=== PATIENT | female | born 1950 | race Caucasian/White ===

== ENCOUNTER → 2016-09-14 | Outpatient (REF) | payer MEDICARE ==
[~2016-09-14] MED LIST: AMLO10TA5 PO; ATOR20TA PO; CYCL-265 PO; ESCI10TA49 PO; FLEC50TA3 PO; HYDR1TAB71 PO; IBP200T PO; ISM30TCR PO; OMEP40CA36 PO; ONDA4TAB8 PO
[2016-09-14 14:39] LABS: BASOPHILS % (AUTO) 1 % (0-2); EOSINOPHILS # (AUTO) 0.1 10^3uL; EOSINOPHILS % (AUTO) 2 % (0-4); LYMPHOCYTES # (AUTO) 2.3 X10^3; MEAN CORPUSCULAR HEMOGLOBIN 28.6 PG (26.0-34.0); MEAN CORPUSCULAR HGB CONC 32.9 g/dL (31.0-37.0); MEAN CORPUSCULAR VOLUME 87 FL (80-100); MEAN PLATELET VOLUME 10.5 FL (6.0-9.5); MONOCYTES # (AUTO) 0.6 X10^3; MONOCYTES % (AUTO) 11 % (3-11); NEUTROPHILS # (AUTO) 2.7 X10^3; NEUTROPHILS % (AUTO) 47 % (51-67); PLATELET COUNT 247 10^3uL (150-450); WHITE BLOOD COUNT 5.77 10^3uL (4.0-11.0)
[2016-09-14 14:54] LABS: ALBUMIN 4.1 g/dL (3.4-5.0); ANION GAP 13.6 MEQ/L (3-15); CALCULATED IONIZED CALCIUM 4.3 mg/dL (3.8-4.6); TOTAL PROTEIN 6.7 g/dL (6.4-8.5)
== END ==
LOC: LAB 14:12
PROVIDERS: ATTEND Nurse Practitioner Family
DX: R10.32 Left lower quadrant pain (principal)
CPT/HCPCS: 80053; 85025; 87088

== ENCOUNTER → 2016-09-18 | Outpatient (CLI) | payer MEDICARE ==
--- NOTE | 2016-09-18 10:55 | Diagnostic Imaging Report ---
PROCEDURE: CT abdomen and pelvis with and without contrast. TECHNIQUE: Precontrast acquisitions were acquired through the abdomen and pelvis. Multiple contiguous axial images were obtained through the abdomen and pelvis after the administration of intravenous contrast. INDICATION: Left lower quadrant pain and bloating. FINDINGS: There is left colonic and sigmoidal diverticuli but there were no findings suggestive of acute diverticulitis. The uterus, adnexa and urinary bladder had an unremarkable appearance. The appendix is visualized and normal. No mesenteric or retroperitoneal adenopathy. Liver, gallbladder, bile ducts, spleen, adrenals, and pancreas are all unremarkable. There are left greater than right renal parapelvic cysts. There is no hydronephrosis. There is no solid complex or suspicious renal mass. No lymphadenopathy. Nonaneurysmal aortic atherosclerosis, chronic. IMPRESSION: Noninflamed diverticulosis. Nonaneurysmal atherosclerosis. Renal parapelvic cysts without hydronephrosis. No acute appearing abdominopelvic abnormality. No focal inflammatory process. No adnexal pathology. Dictated by: Dictated on workstation # [id number]
== END ==
LOC: RAD 06:53
PROVIDERS: ATTEND Nurse Practitioner Family
DX: R10.32 Left lower quadrant pain (principal)
CPT/HCPCS: 74178; Q9967

== ENCOUNTER 2016-10-09 15:15 | Outpatient (RCR) | payer MEDICARE ==
--- NOTE | 2016-09-21 10:52 | PT/OT/ST INITIAL EVALUATION ---
Department of Health and Human Services Form Approved [facility] Care Financing Administration OMB No. [id number] PLAN OF CARE/ASSESSMENT FOR OUTPATIENT REHABILITATION (Complete for Initial Claims Only) 1. PATIENT'S NAME Arminda Garcia 2. ACC # [id number] 3. [facility] [id number] 4. PROVIDER NO. [id number] 5. TYPE: PT 6. PRIOR HOSPITALIZATION NA 7. PRIMARY DX Chronic low back pain ICD-10 M54.5. 8. SECONDARY DX NA 9. ONSET DATE July 2016 10. REFERRAL DATE 09/14/2016 11. SOC. DATE 09/18/2016 12. TIME OF EVAL 9:33 a.m. to 10:08 a.m. 12. REFERRING PHYSICIAN Holly Cruz APRN with primary care physician Ivan Ramos MD 13. CHARGES/UNITS Evaluation [id number] 14. G CODES [id number] Goal [id number] 15. PRIOR LEVEL OF FUNCTION; PERTINENT HISTORY (Prior therapy results, reason for referral.) S: Prior to therapy the patient consented to today's evaluation and treatment. The patient is a 66-year-old female referred by Holly Cruz APRN to address chronic low back pain. The patient reports she has experiencing low back pain off and on for quite some time; however, her most recent exacerbation was in July 2016. She describes her pain as an insidious onset with no specific cause, but has noted a progression of her pain from her low back into her lower extremity. She also notes losing 2 inches in height over the last several years. Prior level of function; The patient works in admissions in the emergency room department. Her job does involve sitting for long periods of time, as well as reaching outside her base of support for a phone and other documents. She is independent with all activities of daily living. Current level of function: The patient reports she is limited in being able to lift groceries since the onset of her back pain and also has increased pain when reaching outside of her chair to reach for the phone, which is set up on her left at work. The patient also notes that she does a lot of activity that causes increased back pain. Therapy History: The patient denies any recent therapy for this issue. Obstacles to delivery of care: Precaution should be used secondary to the patient having plates in her neck secondary to prior surgeries. 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 Pain level: Current pain level is 5/10. The pain is described as frequent, but not daily. She does get sharp pain in her left distal lower extremity along the 5th metatarsal with weightbearing. She also complains of right hip pain that is intermittent as well. Aggravating factors: The pain is exacerbated by ambulation or weightbearing on the left lower extremity. Relieving factors: Pain is relieved by sitting. Diagnostic testing: The patient has not undergone any diagnostic testing for this issue, but does note she had a CT scan of her abdomen recently. Past medical history: Includes restless leg syndrome on the left lower extremity, arthritis, history of neck surgery 6 years ago with metal plates being placed, irregular heart rhythm with the patient reporting the presence of PVCs, history of hypertension, vertigo and fibromyalgia. Current medications: The patient reports taking flecainide, ibuprofen, Tylenol, and Lexapro. Activity level: She reports as low. Personal health rating: She reports as fair. Justification for moderate complexity evaluation code: Includes the presence of irregular heart rhythm, history of neck surgery that may affect her tolerance for therapy activities, and will involve modification of treatment positions, the progressive nature of her low back pain into the left lower extremity. Patient's Goal: The patient's goal for physical therapy is to have no pain. 16. INITIAL ASSESSMENT/SAFETY PRECAUTIONS/MEDICAL COMPLICATIONS (Level of function at start of care. Be specific, use objective measures, list problems.) O: APPEARANCE, OBSERVATION AND GAIT: Observation of the patient's posture in standing reveals high arches. The right iliac crest is superior to the left. She presents with decreased lumbar lordosis. She demonstrates minimal lumbar segmentation with the performance of forward trunk lean. PALPATION: Tenderness to palpation of the bilateral SI joints, lumbar paraspinals, and bilateral greater trochanters. MOBILITY: The patient is hypomobile from T11 through L5, but does have good sacral mobility. SPECIAL TESTS: Negative slump test bilaterally for increased nerve testing. Negative hip scour, JULIANA and FADER test bilaterally. Negative lumbar shearing test for any instability. The patient does score a 15/40 on the modified Oswestry pain questionnaire. The patient's left PSIS moves superiorly with forward lean when the left stays stationary. RANGE OF MOTION/FLEXIBILITY: Lumbar side bending is limited greatest on the left compared to the right. Lumbar flexion is limited by approximately 25%. The patient also has difficulty maintaining neutral hip alignment with performance of right hip flexion and is noted that she does externally rotate from neutral. Left hamstring length is 30 degrees from neutral, right is 30 degrees from neutral. STRENGTH: Right hip flexion is 4/5, left 4/5. Hip abduction 4/5 bilaterally. Right hip extension 2/5, left 3/5. Knee flexion 4/5 on the right, 4+/5 on the left. Knee extension 5/5 on the right, on the left 4+/5. Ankle dorsiflexion 5/5 bilaterally. TODAY'S TREATMENT: Today's treatment consisted of an evaluation only secondary to the patient arriving 20 minutes late for her evaluation. The physical therapist did educate the patient and we will start treatment for the above issues on her next visit. 17. INITIAL POC: (Specify procedures, modalities, short and halfway goals) A: The patient presents to physical therapy with chronic low back pain with the most recent exacerbation being July 2016. She presents with significant lower extremity tightness, impaired segmentation in the lumbar spine, as well as decreased mobility through the lumbar spine. Proximal hip weakness is noted greatest in hip extension. PROGNOSIS: The patient does have a good prognosis with regular therapy attendance and compliance with home exercise program and work ergonomics recommendations. OUTCOME ASSESSMENT: The patient scores a 15/40 on the modified Oswestry with G-code [id number]. INFORMED CONSENT: The diagnosis, prognosis, treatment plan, risks and expected outcomes were discussed with this patient and she is agreeable to today's established plan of care. SHORT TERM GOALS X2 WEEKS: 1. The patient will be independent and compliant with her home exercise program. 2. The patient will have a 10% improvement in bilateral hamstring length to decrease strain on her low back. 3. The patient will have normalized ability through T11 through L5 to be able complete functional tasks with improved body mechanics. 4. The patient will report average pain level over the last week as being no greater than 3/10 in the low back and left lower extremity. NUMERICAL CONTROL TOOL PROGRAMMER GOALS X4 WEEKS: 1. The patient will improve bilateral hip extension strength to be 3+/5 to improve hip stability, as well as an improvement in bilateral hip flexion and abduction strength of 5/5. 2. The patient will be able to demonstrate proper body mechanics when lifting up to 10 pounds to improve her ability to carry groceries in and out of her car to her home. 3. The patient will have a minimum of a 10% improvement in her Modified Oswestry pain questionnaire disability index to demonstrate improved overall function. 4. The patient will report pain no greater than 2/10 with completion of all daily tasks including ambulation. P: Plan to see this patient 3 times a week for 4 weeks to address impaired fine mobility, low back pain, as well as significant weakness in the hips. Treatment will include modalities as needed to address pain and muscle tightness, manual therapy will be utilized including joint mobilizations, myofascial release, soft tissue and deep tissue mobilization. Therapeutic exercise will emphasize in improving low back mobility as well as progressive strengthening of the lower extremities, as well as addressing impaired muscle flexibility in the lower extremities. Neuromuscular reeducation and functional training will also be provided including education on proper body mechanics and work space set up. The patient will be given a home exercise program and this will be progressed as needed. Thank you for the referral of this patient. 18. FREQUENCY 3 times per week 19. DURATION 4 weeks 20. FUNCTIONAL LEVEL (End of claim period) 21. PHYSICIAN SIGNATURE ? ON FILE OR ENTER HERE: 22. DATE: I certify the need for these services furnished under this plan of care and if for partial hospitalization. 23. CERTIFICATION FROM THROUGH [facility]-700
== END 2016-10-30 08:56 | disposition home or self-care (01) ==
LOC: PT 15:15
PROVIDERS: ATTEND Nurse Practitioner Family
DX: M54.5 Low back pain (principal)
CPT/HCPCS: 97110; 97140; 97162; G8978; G8979